=== PATIENT | male | born 1955 | race Caucasian/White ===

== ENCOUNTER 2016-11-12 16:06 | Emergency (ER) | payer BC ==
[2016-11-12 16:36] VITALS: BP 131/74
--- NOTE | 2016-11-12 16:57 | UC ---
Lower Extremity/Ankle HPI - HPI Summary HPI Summary: patient was playing volley ball about 1 month ago, fell and hit the lateral aspect of his right knee, slight pain and swelling that went away. was playing again yesterday, fell and hit the knee again. generalized edema from the knee to the toes, no pain with plapation or movement of the knee, just generalized swelling of the right lower leg. - History of Current Complaint Chief Complaint: UCLowerExtremity Stated Complaint: SWOLLEN RIGHT LEG Time Seen by Provider: 11/12/16 16:48 Hx Obtained From: Patient Onset/Duration: Sudden Onset, Lasting Days Severity Initially: Moderate Severity Currently: Moderate Aggravating Factor(s): Nothing Alleviating Factor(s): Rest Able to Bear Weight: Yes - Allergies/Home Medications Allergies/Adverse Reactions: Allergies Allergy/AdvReac Type Severity Reaction Status Date / Time pollen Allergy Eyes Uncoded 11/12/16 16:36 Itchy/Swollen/Red/Watery Home Medications: Home Medications Ibuprofen TAB* [Advil TAB*] 200 mg PO DAILY PRN 11/12/16 [History Confirmed ] PMH/Surg Hx/FS Hx/Imm Hx Previously Healthy: Yes - Surgical History Surgical History: Yes Surgery Procedure, Year, and Place: vasectomy - Family History Known Family History: Negative: Hypertension - Social History Alcohol Use: Rare Substance Use Type: None Smoking Status (MU): Never Smoked Tobacco Review of Systems Constitutional: Negative Skin: Negative Eyes: Negative ENT: Negative Respiratory: Negative Cardiovascular: Negative Gastrointestinal: Negative Genitourinary: Negative Motor: Negative Neurovascular: Negative Musculoskeletal: Arthralgia, Edema, Myalgia Neurological: Negative Psychological: Negative All Other Systems Reviewed And Are Negative: Yes Physical Exam Triage Information Reviewed: Yes Appearance: Well-Appearing, Well-Nourished, Pain Distress Vital Signs: Initial Vital Signs Temp 98.6 F 11/12/16 16:27 Pulse 55 11/12/16 16:27 Resp 12 11/12/16 16:27 BP 131/74 11/12/16 16:27 Vital Signs Reviewed: Yes Eye Exam: Normal Eyes: Positive: Conjunctiva Clear ENT Exam: Normal ENT: Positive: Hearing grossly normal, Pharynx normal, TMs normal Dental Exam: Normal Neck exam: Normal Neck: Positive: Supple, Nontender, No Lymphadenopathy Respiratory Exam: Normal Respiratory: Positive: Chest non-tender, Lungs clear, Normal breath sounds Cardiovascular Exam: Normal Cardiovascular: Positive: RRR, No Murmur, Pulses Normal Abdominal Exam: Normal Abdomen Description: Positive: Nontender, No Organomegaly, Soft Bowel Sounds: Positive: Present Musculoskeletal: Positive: Strength Intact, ROM Intact, Edema @ - gernalized from bottom of knee to the toes on right leg, no redness or streaks, no bruising. +Pedal pulses Neurological Exam: Normal Neurological: Positive: Alert, Muscle Tone Normal Psychological Exam: Normal Skin Exam: Normal Lower Extremity Course/Dx - Course Course Of Treatment: hx obtained, exam performed, meds reviewed, xray obtained of lower leg and is negative fro fractuer, sending patient to ER for evaluation of DVT, patient is agreement with plan. paperwork signed for refusal of ambulance - Differential Dx/Diagnosis Differential Diagnosis/HQI/PQRI: Contusion, Dislocation, DVT, Fracture (Closed) , Osteomyelitis, Sprain, Strain Provider Diagnoses: tigh lower leg swelling - Physician Notifications Discussed Patient Care With: Dr Anthony @ [facility] Instructed by Provider To: Will See In ED Discharge - Discharge Plan Condition: Stable Disposition: AGAINST MEDICAL ADVICE Referrals: Traci Rolle PA [Physician [facility]] -
--- NOTE | 2016-11-12 17:30 | RAD ---
INDICATION: Right lower leg injury. TECHNIQUE: 2 views of the right lower leg were obtained. FINDINGS: There is soft tissue swelling along the anterior aspect of the proximal lower leg and in the region of the patellar tendon. No fracture is seen. IMPRESSION: Soft tissue swelling, no fracture is seen.
== END 2016-11-12 17:57 | disposition left against medical advice (07) ==
LOC: UCCORT 16:06
DX: R60.0 Localized edema (principal)
CPT/HCPCS: 99213; G0463

== ENCOUNTER 2018-12-29 09:22 | Emergency (ER) | payer BC ==
[2018-12-29 09:42] VITALS: BP 129/79
[2018-12-29] MEDS ORDERED: Tetan/Diph/Pertus SYR(Tdap)* 0.5 ML SYR(BOOSTRIX) use SYR IM ONE (09:54)
--- NOTE | 2018-12-29 09:58 | UC ---
Bite Injury/Animal HPI - HPI Summary HPI Summary: 63-year-old male comes in with a chief complaint of cat bite and scratches to the left forearm. The cat that did this about an hour ago as it known Up-to- date on all its vaccinations. Some of the wounds did bleed a little instability much all. There is some pain with range of motion of the forearm. Decreased pain when is not moving. No loss of range of motion no numbness. - History of Current Complaint Chief Complaint: UCBiteInjury Stated Complaint: LEFT ARM CAT BITE Time Seen by Provider: 12/29/18 09:46 Pain Intensity: 3 - Allergies/Home Medications Allergies/Adverse Reactions: Allergies Allergy/AdvReac Type Severity Reaction Status Date / Time pollen Allergy Eyes Uncoded 12/29/18 09:42 Itchy/Swollen/Red/Watery PMH/Surg Hx/FS Hx/Imm Hx Previously Healthy: Yes - Surgical History Surgical History: Yes Surgery Procedure, Year, and Place: vasectomy - Family History Known Family History: Negative: Hypertension - Social History Alcohol Use: Occasionally Substance Use Type: None Smoking Status (MU): Never Smoked Tobacco - Immunization History Hx Tetanus, Diphtheria Vaccination: Yes - >10 years ago Review of Systems All Other Systems Reviewed And Are Negative: Yes Constitutional: Positive: Negative Skin: Positive: Other - see hpi Eyes: Positive: Negative ENT: Positive: Negative Respiratory: Positive: Negative Cardiovascular: Positive: Negative Gastrointestinal: Positive: Negative Motor: Positive: Negative Neurovascular: Positive: Negative Musculoskeletal: Positive: Negative Neurological: Positive: Negative Psychological: Positive: Negative Is Patient Immunocompromised?: No Physical Exam Triage Information Reviewed: Yes Appearance: Well-Appearing, No Pain Distress, Well-Nourished Vital Signs: Initial Vital Signs Temp 98.2 F 12/29/18 09:36 Pulse 77 12/29/18 09:36 Resp 18 12/29/18 09:36 BP 129/79 12/29/18 09:36 Pulse Ox 100 12/29/18 09:36 Vital Signs Reviewed: Yes Eye Exam: Normal Eyes: Positive: Conjunctiva Clear Neck: Positive: Supple Respiratory: Positive: No respiratory distress Musculoskeletal: Positive: Strength Intact, ROM Intact Neurological Exam: Normal Neurological: Positive: Alert, Muscle Tone Normal Psychological Exam: Normal Psychological: Positive: Age Appropriate Behavior Skin: Positive: Other - Left forearm; multiple puncture wounds. No active bleeding, arm with FROM. Mild pain at puncture wound sites with ROM. NL cap refill, no sensation deficit. Bite Injury Course/Dx - Differential Dx/Diagnosis Provider Diagnosis: Cat bite of left forearm Discharge - Sign-Out/Discharge Documenting (check all that apply): Patient Departure All imaging exams completed and their final reports reviewed: No Studies - Discharge Plan Condition: Stable Disposition: HOME Prescriptions: Amoxicillin/Clavulanate TAB* [Augmentin TAB 875*] 875 mg PO BID #14 tab Patient Education Materials: Animal Bite (ED) Referrals: Traci Rolle PA [Primary Care Provider] - Additional Instructions: FOLLOW UP WITH YOUR DOCTOR IF NOT COMPLETELY IMPROVED. GET RECHECKED SOONER IF YOUR CONDITION WORSENS; INFECTION, SPREAD OF INFECTION, YOU FEEL ILL, FEVER OR ANY QUESTIONS OR CONCERNS. - Billing Disposition and Condition Condition: STABLE Disposition: Home
== END 2018-12-29 10:05 | disposition home or self-care (01) ==
LOC: UCCORT 09:22
DX: S51.852A Open bite of left forearm, initial encounter (principal); W55.01XA Bitten by cat, initial encounter; Y92.9 Unspecified place or not applicable
CPT/HCPCS: 90471; 90715; 99212; G0463